=== PATIENT | female | born 1945 | race Caucasian/White ===

== ENCOUNTER 2023-06-02 14:26 | Outpatient (CLI) | payer MEDICARE, SELFPAY ==
--- NOTE | ~2023-06-02 | XR_ITS ---
EXAMINATION: XR hip RT 2V w AP pelvis INDICATION: Right hip pain TECHNIQUE: AP view the pelvis and two views of the right hip are obtained on five radiographs COMPARISON: None available FINDINGS: Bone alignment is normal. There is no acute fracture. There is antegrade intramedullary chrissy and interlocking intratrochanteric screw fixation of the right femur. Changes of right knee arthropl asty are noted. There are phleboliths of the pelvis. Severe lumbar spondylosis is noted. 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 IMPRESSION: 1. No acute osseous abnormality. Reviewed, dictated and finalized at location B.
== END 2023-06-02 14:27 | disposition home or self-care (01) ==
PROVIDERS: PCP Nurse Practitioner Family; Visit Provider Neurological Surgery
DX: M47.816 Spondylosis without myelopathy or radiculopathy, lumbar region (principal)
CPT/HCPCS: 73502

== ENCOUNTER 2024-03-21 10:33 | Emergency (ER) | payer MEDICARE, MEDICAID, SELFPAY ==
[2024-03-21] VITALS (17 sets, daily range): BP systolic 91–127; BP diastolic 60–74; PULSE 80–88; RESP 15–20; TEMP 37; O2SAT 95–100
--- NOTE | ~2024-03-21 | XR_ITS ---
XR chest 2V Ordering provider: Trae Forte MD History: 78 years Female with . weakness LOW ENERGY NO APPETITE . Comparison: None. FINDINGS: MEDIASTINUM: The cardiac silhouette is slightly enlarged. LUNGS: No infiltrates, effusions or pneumothorax. OTHER: No free air under the diaphragm. Degenerative changes of the spine. IMPRESSION: No acute cardiopulmonary pathology. Reviewed, dictated and finalized at location A.
--- NOTE | ~2024-03-21 | CT_ITS ---
EXAMINATION: CT abdomen pelvis wo con DATE: 03/21/2024 14:31 INDICATION: Hematuria. TECHNIQUE: Computed tomography (CT) of the abdomen and pelvis was performed without intravenous contr ast. Automated exposure control and iterative reconstruction technique were employed. The dose-length product was 285.40 mGy-cm. COMPARISON: None. FINDINGS: The visualized portions of the lung bases demonstrate mild atelectasis. No pleural effusion . The heart size is normal. There is a trace pericardial effusion. There is a moderate-sized sliding hiatal hernia. Pneumobilia is noted, likely secondary to sphincterotomy. There is moderate intrahepat ic biliary duct dilatation. The common duct is dilated to 15 mm, likely not clinically significant gi tyron the normal liver function tests. The gallbladder is absent. The spleen, pancreas, adrenal glands, and right kidney are normal. There are cysts in left kidney measuring up to 2.5 cm. There is gas in the bladder lumen, likely from recent instrumentation. There is diverticulosis of the colon without e vidence of diverticulitis. There are no dilated loops of bowel. The appendix is not visualized. There are no pathologically enlarged lymph nodes. There is no free intraperitoneal fluid. There is a total right hip arthroplasty. There is severe thoracic and lumbar spondylosis. IMPRESSION: 1. No urolithiasis. 2. Moderate-sized sliding hiatal hernia. Reviewed, dictated and finalized at location A.
--- NOTE | 2024-03-21 10:48 | ECG_ITS ---
Test Date: 2024-03-21 10:55:42 Measurements Intervals Mcintosh Rate: 81 P: 83 CT: 206 QRS: -21 QRSD: 86 T: 9 QT: 382 QTc: 444 Interpretive Statements SINUS RHYTHM BORDERLINE LEFT AXIS DEVIATION [QRS AXIS < -20] MODERATE VOLTAGE CRITERIA FOR LVH, CONSIDER NORMAL VARIANT [MEETS CRITERIA IN ONE OF: R(aVL), S(V1), R(V5), R(V5/V6)+S(V1)] No previous ECG available for comparison Electronically Signed On 03-21-2024 13:37:42 CDT by Kenji Coates M.D.
[2024-03-21 11:09] LABS: Basophils Percent Auto 0.2 % (0.2-1.2); Eosinophils Absolute Auto 0.1 K/mm3 (0-0.3); Eosinophils Percent Auto 1.1 % (0-4.4); Hematocrit 34.8 % (37.0-47.0); Hemoglobin 11.3 g/dL (12.0-15.0); Immature Granulocyte Absolute 0.06 K/mm3 (0.00-0.031); Immature Granulocyte Percent A 0.6 % (0-0.5); Lymphocytes Absolute Auto 1.69 K/mm3 (0.9-3.2); Lymphocytes Percent Auto 16.3 % (18.3-44.2); Mean Corpuscular HGB Conc 32.5 g/dl (32-36); Mean Corpuscular Hemoglobin 31.7 pg (26-34); Mean Corpuscular Volume 97.8 fl (80-100); Mean Platelet Volume 9.9 fl (7.4-10.4); Monocytes Percent Auto 9.8 % (2.6-8.5); Neutrophils Absolute Auto 7.5 K/mm3 (1.3-6.7); Platelet Count Result 316 k/mm3 (150-375); Red Blood Count 3.56 M/mm3 (4.2-5.4); Red Cell Distribution Width 13.4 % (11.5-14.5); White Blood Count 10.4 K/mm3 (4.5-10.0)
[2024-03-21 11:31] LABS: Alanine Aminotransferase 17 U/L (6-35); Albumin Level 4.1 g/dL (3.5-5.1); Alkaline Phosphatase 95 U/L (38-126); Anion Gap 9 mmol/L (4-12); Aspartate Amino Transferase 21 U/L (14-36); Bilirubin,Total 0.7 mg/dL (0.2-1.3); Blood Urea Nitrogen 24 mg/dL (7-17); Calcium 8.8 mg/dL (8.4-10.2); Carbon Dioxide 22 mmol/L (22-30); Chloride 107 mmol/L (98-107); Estimated CRCL calculation 30 ml/min; Estimated Glomerular Filt Rate 54; Glucose 162 mg/dL (65-110); Potassium 3.5 mmol/L (3.4-5.0); Sodium 138 mmol/L (137-145)
--- NOTE | 2024-03-21 11:36 | ED.GENADULT ---
HPI - General Adult General Chief complaint: Weakness Stated complaint: WEAKNESS Time Seen by Provider: 03/21/24 10:40 History of Present Illness HPI narrative: 78-year-old female presents to the emergency department for evaluation for reported low energy at the halfway. Upon arrival emergency department patient states she is unsure why she is here and patient has no complaints. Patient is uncomfortable appearing, patient states she is uncomfortable but patient also states she is unable to explain why she is uncomfortable and continues to deny any pain. Related Data Home Medications Medication Instructions Recorded Confirmed albuterol 90 mcg/actuation aerosol mcg inhalation 07/13/22 07/28/23 inhaler alendronate 10 mg tablet 10 mg PO QAM 07/13/22 07/28/23 aspirin 81 mg tablet,delayed 81 mg PO DAILY 07/13/22 07/28/23 release carvedilol 12.5 mg tablet 12.5 mg PO Q12H 07/13/22 07/28/23 cholecalciferol (vitamin D3) 25 25 mcg PO DAILY 07/13/22 07/28/23 mcg (1,000 unit) capsule cyclobenzaprine 10 mg tablet 10 mg PO TID 07/13/22 07/28/23 ezetimibe 10 mg tablet 10 mg PO DAILY 07/13/22 07/28/23 famotidine 20 mg tablet 20 mg PO DAILY 07/13/22 07/28/23 fluoxetine 20 mg capsule 20 mg PO DAILY 07/13/22 07/28/23 fluticasone propionate 50 1 spray intranasal DAILY 07/13/22 07/28/23 mcg/actuation nasal spray,suspension losartan 100 mg tablet 100 mg PO DAILY 07/13/22 07/28/23 meclizine 25 mg tablet 25 mg PO BID PRN 07/13/22 07/28/23 meloxicam 7.5 mg tablet 7.5 mg PO DAILY 07/13/22 07/28/23 pantoprazole 40 mg tablet,delayed 40 mg PO QAM 07/13/22 07/28/23 release ropinirole 1 mg tablet 1 mg PO BID 07/13/22 07/28/23 spironolactone 25 mg tablet 25 mg PO DAILY 07/13/22 07/28/23 sucralfate 1 gram tablet PO 10/19/22 11/03/23 tramadol 50 mg tablet 50 mg PO Q6H PRN 07/13/22 07/28/23 dicyclomine 20 mg tablet 20 mg PO BID 03/24/23 07/28/23 Allergies Allergy/AdvReac Type Severity Reaction Status Date / Time tizanidine Allergy Mild Hypotension Verified 07/28/23 13:21 Review of Systems Review of Systems: All systems reviewed & are unremarkable except as noted in HPI and below PMFSH Past Medical History Medical History (Updated 03/21/24 @ 14:58 by Trae Forte MD) Acid reflux Acute arthritis Anxiety CAD (coronary artery disease) Cardiomyopathy Cataract Depression Emphysema lung FHx: cholecystectomy Gallbladder disease High cholesterol Hypertension Osteoporosis Stenosis of carotid artery Surgical History Surgical History History of carpal tunnel release History of cataract surgery History of total knee replacement (TKR) Hx of cholecystectomy Family History Family History Other Breast cancer Diabetes mellitus Hypertension Migraine Social History Social History (Updated 06/02/23 @ 13:50 by Shantel Eaton) Smoking status: Never smoker Alcohol intake: current Substance use: never Substance use type: does not use Lack of Transportation: No Lack of Food: Never True Current Housing: I Have Housing Concerned About Future Housing: No Difficulty Paying Gas/Electric Bills: No Difficulty Paying for Meds: No Currently Unemployed: No Education: High School Diploma/GED Difficulty w/ Childcare or Family Care: No Living arrangements: alone Exam Narrative: APPEARANCE: Uncomfortable appearing HEAD: normocephalic, atraumatic. EYES: PERRLA/EOMI, conjunctivae clear. NOSE: Normal no drainage EARS:TMS clear with good light reflex. THROAT: Pharynx clear, no exudate. NECK: Supple. No adenopathy, no masses. RESPIRATORY: Airway patent, respirations nonlabored. Clear to auscultation bilaterally, no rales, rhonchi, wheezing. CARDIOVASCULAR: Regular rate and rhythm without murmurs rubs or gallops. ABDOMINAL: Soft, nontender MUSCULOSKELETAL: Moves all extremities. Strength/R
[2024-03-21 12:35] LABS: Influenza A QL RT-PCR Negative (Negative); Influenza B QL RT-PCR Negative (Negative); RSV RNA, RT-PCR Negative (Negative); SARS-CoV-2 RNA PCR Negative (Negative)
[2024-03-21] MEDS: ALBUTEROL SULFATE NEB 2.5 MG/3 ML INH INHALATION (13:21)
[2024-03-21 13:49] LABS: Appearance Urine Clear (Clear); Color Urine Yellow (Yellow); Glucose Urine UA Negative (Negative); Protein Urine 1+ (Negative); Specific Grav Ur 1.015 (1.010-1.020)
[2024-03-21 13:50] LABS: Bilirubin Urine 1+ (Negative); Blood Urine 2+ (Negative); Ketones Urine 1+ (Negative); Leukocyte Esterase Ur Negative LEU/UL (Negative); Nitrate Urine Negative (Negative)
[2024-03-21 13:59] LABS: Add Urine Microscopic? YES
[2024-03-21 14:00] LABS: Hyaline Casts Urine 0-2 /lpf; Squamous Epithelial Cell Urine Moderate /hpf (Few); WBC Urine 0-3 /hpf (0-3)
[2024-03-21 14:01] LABS: Mucus Urine Present /lpf
== END 2024-03-21 15:05 ==
PROVIDERS: Emergency Provider Emergency Medicine; PCP Nurse Practitioner Family
DX: R53.83 Other fatigue (principal); I25.10 Atherosclerotic heart disease of native coronary artery without angina pectoris; I10 Essential (primary) hypertension; J43.9 Emphysema, unspecified; Z20.822 Contact with and (suspected) exposure to COVID-19
CPT/HCPCS: 36415; 71046; 74176; 80053; 81001; 85025; 87637; 93005; 94640; 99284

== ENCOUNTER 2024-06-18 15:20 | Outpatient (CLI) | payer MEDICARE, MEDICAID, SELFPAY | END 2024-06-18 15:21 | disposition home or self-care (01) | PROVIDERS: PCP Nurse Practitioner Family; Visit Provider Otolaryngology | DX: H90.3 Sensorineural hearing loss, bilateral (principal) | CPT/HCPCS: 92557; 92567 ==